=== PATIENT | female | born 1990 | race Caucasian/White ===

== ENCOUNTER 2017-09-06 00:55 | Emergency (ER) | payer MEDICAID | END 2017-09-06 01:28 | disposition home or self-care (01) | LOC: D.ER 00:55 | DX: H60.502 Unspecified acute noninfective otitis externa, left ear (principal) ==

== ENCOUNTER 2018-01-31 07:57 | Emergency (ER) | payer MEDICAID | END 2018-01-31 08:57 | disposition home or self-care (01) | LOC: D.ER 07:57 | DX: K02.9 Dental caries, unspecified (principal); K08.89 Other specified disorders of teeth and supporting structures ==

== ENCOUNTER 2018-11-04 12:15 | Emergency (ER) | payer OTHER ==
[~2018-11-04] VITALS: Ht 152.4 cm; Wt 129.5 kg
[2018-11-04 12:33] VITALS: BP 134/66; Ht 152.4 cm; Wt 129.5 kg
[2018-11-04] MEDS ORDERED: KEFLEX500 MG PO (14:32)
[2018-11-04] MEDS ORDERED: BACTRIM DS1 TAB PO (14:32)
[2018-11-04] MEDS ORDERED: IBUPROFEN800 MG PO (14:35)
[2018-11-04] MEDS ORDERED: CYCLOBENZAPRINE10 MG PO (14:35)
[2018-11-04] MEDS ORDERED: ACETAMINOPHEN500 M1 PO (14:35)
== END 2018-11-04 14:55 | disposition home or self-care (01) ==
LOC: D.ER 12:15
DX: S60.051A Contusion of right little finger without damage to nail, initial encounter (principal); W23.0XXA Caught, crushed, jammed, or pinched between moving objects, initial encounter; Y93.89 Activity, other specified; Y92.89 Other specified places as the place of occurrence of the external cause; M79.644 Pain in right finger(s)